=== PATIENT | male | born 1990 | race Caucasian/White ===

== ENCOUNTER 2017-02-16 12:26 | Emergency (ER) | payer OTHER ==
[~2017-02-16] VITALS: Ht 182.9 cm; Wt 84.5 kg
[2017-02-16 14:29] VITALS: BP 142/76
== END 2017-02-16 14:29 | disposition home or self-care (01) ==
LOC: ED 12:26
DX: S91.011A Laceration without foreign body, right ankle, initial encounter (principal); S93.401A Sprain of unspecified ligament of right ankle, initial encounter; V29.9XXA Motorcycle rider (driver) (passenger) injured in unspecified traffic accident, initial encounter; Y93.89 Activity, other specified; Y99.8 Other external cause status; Y92.89 Other specified places as the place of occurrence of the external cause
CPT/HCPCS: J2001

== ENCOUNTER 2017-03-09 14:39 | Emergency (ER) | payer OTHER ==
[~2017-03-09] VITALS: Ht 182.9 cm; Wt 83.9 kg
[2017-03-09 14:42] VITALS: BP 109/62; Ht 182.9 cm; Wt 83.9 kg
== END 2017-03-09 15:41 | disposition home or self-care (01) ==
LOC: ED 14:39
DX: S91.011D Laceration without foreign body, right ankle, subsequent encounter (principal); X58.XXXD Exposure to other specified factors, subsequent encounter

== ENCOUNTER 2017-04-20 00:48 | Emergency (ER) | payer OTHER ==
[~2017-04-20] VITALS: Ht 182.9 cm; Wt 85.3 kg
[2017-04-20 01:22] VITALS: Ht 182.9 cm; Wt 85.3 kg
[2017-04-20 02:43] VITALS: BP 114/64
== END 2017-04-20 02:43 | disposition home or self-care (01) ==
LOC: ED 00:48
DX: S09.8XXA Other specified injuries of head, initial encounter (principal); V29.3XXA Motorcycle rider (driver) (passenger) injured in unspecified nontraffic accident, initial encounter; Y93.89 Activity, other specified; Y99.8 Other external cause status; Y92.89 Other specified places as the place of occurrence of the external cause

== ENCOUNTER 2017-05-16 15:43 | Emergency (ER) | payer OTHER ==
[~2017-05-16] VITALS: Ht 182.9 cm; Wt 83.0 kg
[2017-05-16 15:52] VITALS: BP 142/76; Ht 182.9 cm; Wt 83.0 kg
== END 2017-05-16 18:20 | disposition left against medical advice (07) ==
LOC: ED 15:43
DX: Z53.21 Procedure and treatment not carried out due to patient leaving prior to being seen by health care provider (principal)

== ENCOUNTER 2019-10-05 21:28 | Emergency (ER) | payer OTHER ==
[~2019-10-05] VITALS: Ht 182.9 cm; Wt 81.6 kg
[2019-10-05 21:50] VITALS: Ht 182.9 cm; Wt 81.6 kg
[2019-10-05 23:03] VITALS: BP 116/71
== END 2019-10-05 23:03 | disposition home or self-care (01) ==
LOC: ED 21:28
DX: S80.862A Insect bite (nonvenomous), left lower leg, initial encounter (principal); L03.116 Cellulitis of left lower limb; W57.XXXA Bitten or stung by nonvenomous insect and other nonvenomous arthropods, initial encounter; Y93.89 Activity, other specified; Y92.89 Other specified places as the place of occurrence of the external cause; Y99.8 Other external cause status